=== PATIENT | female | born 1950 | race Caucasian/White ===

== ENCOUNTER 2018-08-13 19:38 | Emergency (ER) | payer OTHER ==
[~2018-08-13] VITALS: Ht 162.6 cm; Wt 73.0 kg
[~2018-08-13 19:38] MED LIST: ACYC400T PO; ZOLP10TA2 PO
[2018-08-13 19:48] VITALS: BP_SYST 163
[2018-08-13] MEDS ORDERED: KETOROLAC TROMETHAMINE 30 MG VIAL IVP ONE (20:00)
[2018-08-13] MEDS ORDERED: FAMOTIDINE PF 20 MG/2 ML VIAL IVP ONE (20:00)
[2018-08-13] MEDS ORDERED: ONDANSETRON HCL 4 MG/2 ML VIAL IVP ONE (20:00)
[2018-08-13 20:13] LABS: BILIRUBIN,URINE NEGATIVE (NEGATIVE); BLOOD, URINE 1+ (NEGATIVE); CLARITY/URINE CLEAR (CLEAR); COLOR,URINE YELLOW (YELLOW); GLUCOSE,URINE NEGATIVE (NEGATIVE); KETONES,URINE NEGATIVE (NEGATIVE); LEUKOCYTE ESTERASE ,URINE NEGATIVE (NEGATIVE); NITRITE, URINE NEGATIVE (NEGATIVE); PROTEIN URINE NEGATIVE (NEGATIVE); UROBILINOGEN,URINE 0.2 (0.2-1.0)
[2018-08-13] MEDS ORDERED: MORPHINE 4 MG/ML INJ. SYRINGE IVP ONE (20:15)
[2018-08-13 20:24] LABS: BACTERIA,URINE None Seen /HPF (None Seen); MUCUS,URINE None Seen /LPF (None Seen); RBC,URINE 0-3 /HPF (0-3); WBC,URINE 0-3 /HPF (0-3)
[2018-08-13 20:35] LABS: HEMOGLOBIN 13.2 g/dL (12.0-16.0); WHITE BLOOD COUNT (AUTO) 5.8 K/uL (4.8-10.8)
[2018-08-13 20:36] LABS: BASOPHILS % (AUTO) 0.3 % (0.0-2.0); EOSINOPHILS # (AUTO) 0.1 K/uL (0.0-0.4); EOSINOPHILS % (AUTO) 2.3 % (0.0-4.0); LYMPHOCYTES % (AUTO) 33.6 % (20.5-51.5); MEAN CORPUSCULAR HEMOGLOBIN 32 pg (27-31); MEAN CORPUSCULAR HGB CONC 34 % (32-36); MEAN CORPUSCULAR VOLUME 95 fL (79.0-98.0); MONOCYTES # (AUTO) 0.5 K/uL (0.0-1.0); MONOCYTES % (AUTO) 8.1 % (1.7-9.3); NEUTROPHILS # (AUTO) 3.2 K/uL (1.8-7.7); NEUTROPHILS % (AUTO) 55.7 % (40.0-70.0); PLATELET COUNT (AUTO) 233 K/uL (130-430); RED CELL DISTRIBUTION WIDTH 13.2 % (9.0-15.0)
[2018-08-13 20:39] LABS: CALCIUM 8.9 mg/dL (8.4-11.0); CREATININE 0.79 mg/dL (0.55-1.30); POTASSIUM 3.8 mmol/L (3.5-5.1)
[2018-08-13 20:43] LABS: TOTAL BILIRUBIN 0.3 mg/dL (0.0-1.0)
[2018-08-13] MEDS ORDERED: NACL 0.9% 1,000 ML IV ONE (20:49)
[2018-08-13 22:19] VITALS: BP_SYST 122
== END 2018-08-13 22:19 | disposition home or self-care (01) ==
LOC: SED 19:38
DX: R10.13 Epigastric pain (principal); J45.909 Unspecified asthma, uncomplicated; Z91.048 Other nonmedicinal substance allergy status; Z79.899 Other long term (current) drug therapy
CPT/HCPCS: 36415; 74176; 80053; 81000; 83690; 85025; 96374; 96375; 99284; J2270; J2405; J3490; J7030

== ENCOUNTER 2020-11-14 09:25 | Emergency (ER) | payer BC, OTHER ==
[~2020-11-14] VITALS: Ht 162.6 cm; Wt 65.8 kg
[2020-11-14 09:25] VITALS: BP_SYST 142
[~2020-11-14 09:25] MED LIST changes: -ACYC400T PO; +ACYC400T19 PO
[2020-11-14] MEDS ORDERED: HYDROCORTISONE 1%, 28.35 GM TOPICAL CREAM TP PRN (10:00)
[2020-11-14 10:37] LABS: BASOPHILS % (AUTO) 0.2 % (0.0-2.0); CALCIUM 9.3 mg/dL (8.4-11.0); CREATININE 0.64 mg/dL (0.55-1.30); EOSINOPHILS % (AUTO) 0.1 % (0.0-4.0); HEMATOCRIT 39.4 % (36-48); HEMOGLOBIN 13.4 g/dL (12.0-16.0); LYMPHOCYTES # (AUTO) 1.3 K/uL (1.0-5.5); LYMPHOCYTES % (AUTO) 18.8 % (20.5-51.5); MEAN CORPUSCULAR HEMOGLOBIN 33 pg (27-31); MEAN CORPUSCULAR HGB CONC 34 % (32-36); MEAN CORPUSCULAR VOLUME 97 fL (79.0-98.0); MONOCYTES # (AUTO) 0.3 K/uL (0.0-1.0); MONOCYTES % (AUTO) 4.8 % (1.7-9.3); NEUTROPHILS # (AUTO) 5.3 K/uL (1.8-7.7); NEUTROPHILS % (AUTO) 76.1 % (40.0-70.0); PLATELET COUNT (AUTO) 222 K/uL (130-430); RED BLOOD CELL COUNT(AUTO) 4.08 MIL/uL (4.2-6.2); RED CELL DISTRIBUTION WIDTH 12.9 % (9.0-15.0)
[2020-11-14 10:43] LABS: TOTAL BILIRUBIN 0.5 mg/dL (0.0-1.0)
[2020-11-14 11:37] LABS: ERYTHROCYTE SEDIMENTATION RATE 10 MM/HR (0-20)
[2020-11-14 12:10] VITALS: BP_SYST 142
== END 2020-11-14 12:11 | disposition home or self-care (01) ==
LOC: SED 09:25
DX: N64.4 Mastodynia (principal); F41.9 Anxiety disorder, unspecified; J45.909 Unspecified asthma, uncomplicated; R20.8 Other disturbances of skin sensation; Z88.8 Allergy status to other drugs, medicaments and biological substances; Z79.899 Other long term (current) drug therapy
CPT/HCPCS: 36415; 71045; 80053; 84484; 85025; 85379; 85651-TC; 93005; 99285

== ENCOUNTER 2022-07-02 11:32 | Emergency (ER) | payer BC ==
[~2022-07-02] VITALS: Ht 162.6 cm; Wt 63.0 kg
[2022-07-02 11:32] VITALS: BP_SYST 146
--- NOTE | 2022-07-02 11:35 | NUR ---
BROUGHT BACK TO BED #2 AND TRIAGED. REPORT GIVEN TO DAVE
--- NOTE | 2022-07-02 12:00 | NUR ---
RECEIVED PT FROM SHARYN WALTERS. PT BIB WITH C/O DIZZINESS. PT IS [id number]. ON R/A. NORMAL S1S2 NOTED. C/O OF NAUSEA. DISTAL PULSES NORMAL. SKIN WARM. DENIES PAIN. SIDERAILS UP X2.
--- NOTE | 2022-07-02 13:10 | NUR ---
DR. ALEXANDER AT BEDSIDE TO ASSESS PT.
[2022-07-02] MEDS ORDERED: MECLIZINE HCL 25 MG TABLET (ANITVERT) PO ONE (13:30)
--- NOTE | 2022-07-02 13:38 | NUR ---
LAB OBTAINED AT THIS TIME.
--- NOTE | 2022-07-02 13:50 | NUR ---
CT SCAN COMPLETED.
[2022-07-02 13:58] LABS: BASOPHILS % (AUTO) 0.3 % (0.0-2.0); EOSINOPHILS % (AUTO) 0.1 % (0.0-4.0); HEMOGLOBIN 13.6 g/dL (12.0-16.0); LYMPHOCYTES # (AUTO) 1.2 K/uL (1.0-5.5); LYMPHOCYTES % (AUTO) 22.4 % (20.5-51.5); MEAN CORPUSCULAR HEMOGLOBIN 33 pg (27-31); MEAN CORPUSCULAR HGB CONC 34 % (32-36); MEAN CORPUSCULAR VOLUME 97 fL (79.0-98.0); MONOCYTES # (AUTO) 0.3 K/uL (0.0-1.0); MONOCYTES % (AUTO) 6.1 % (1.7-9.3); NEUTROPHILS # (AUTO) 3.7 K/uL (1.8-7.7); NEUTROPHILS % (AUTO) 71.1 % (40.0-70.0); PLATELET COUNT (AUTO) 209 K/uL (130-430); RED BLOOD CELL COUNT(AUTO) 4.14 MIL/uL (4.2-6.2); WHITE BLOOD COUNT (AUTO) 5.2 K/uL (4.8-10.8)
[2022-07-02 14:02] LABS: ANION GAP 9 (5-15); CHLORIDE 102 mmol/L (98-107); CREATININE 0.47 mg/dL (0.55-1.30); GLUCOSE 103 mg/dL (70-99); UREA NITROGEN, BLOOD 14 mg/dL (8-21)
--- NOTE | 2022-07-02 14:03 | NUR ---
SCHEDULED MED GIVEN AND TOLERATED WELL.
[2022-07-02 14:14] LABS: ALANINE AMINOTRANSFERASE 51 U/L (12-78); ALBUMIN 3.9 g/dL (3.4-4.8); ASPARTATE AMINOTRANSFERASE 32 U/L (10-37); TOTAL BILIRUBIN 0.5 mg/dL (0.0-1.0)
[2022-07-02] MEDS ORDERED: MECL-225 PO (14:16)
--- NOTE | 2022-07-02 14:55 | NUR ---
DR. WHIET AT BEDSIDE TO DISCUSS POC.
[2022-07-02 15:08] VITALS: BP_SYST 123
--- NOTE | 2022-07-02 15:11 | NUR ---
Patient given written and verbal discharge instructions and verbalizes understanding. ER MD discussed with patient the results and treatment provided. Patient in stable condition. ID arm band removed. Rx of MECLIZINE given. Patient educated on pain management and to follow up with PMD. Pain Scale 0/10. Opportunity for questions provided and answered. Medication side effect fact sheet provided.
== END 2022-07-02 15:11 | disposition home or self-care (01) ==
LOC: SED 11:32
DX: G62.9 Polyneuropathy, unspecified (principal); R42 Dizziness and giddiness; R20.2 Paresthesia of skin; J45.909 Unspecified asthma, uncomplicated; Z91.048 Other nonmedicinal substance allergy status; Z79.899 Other long term (current) drug therapy
CPT/HCPCS: 99285; 70450; 71045; 80053; 85025; 84484; 36415; 93005; 76376; J8597